=== PATIENT | female | born 1975 | race Caucasian/White ===

== ENCOUNTER 2020-08-15 11:22 | Observation (INO) | payer BC, OTHER ==
[2020-08-15] MEDS ORDERED: LOPERAMIDE HCL 2 MG CAPSULE PO PRN (12:00)
[2020-08-15] MEDS ORDERED: ONDANSETRON 4 MG/2 ML VIAL IV PRN (12:00)
[2020-08-15] MEDS ORDERED: POLYETHYL GLY 3350 17 GM/DOSE PO PRN (12:00)
[2020-08-15] MEDS ORDERED: ONDANSETRON 4 MG (ODT) TAB PO PRN (12:00)
[2020-08-15] MEDS ORDERED: DIPHENHYDRAMINE 25 MG TAB/CAP PO PRN (12:00)
[2020-08-15] MEDS: NACHLORIDE 0.45% 1,000 ML IV SCH (12:00)
[2020-08-15] MEDS ORDERED: ACETAMINOPHEN 325 MG TABLET PO PRN (12:00)
[2020-08-15] MEDS: HYDROMORPHONE HCL 1 MG/ML INJ IV PRN ×2 (13:19→20:13)
[2020-08-15 13:25] VITALS: BMI 27.2
--- NOTE | 2020-08-15 13:30 | RAD REPORT ---
EXAM DESCRIPTION: US - Abdomen Exam Complete - 08/15/2020 1:12 pm CLINICAL HISTORY: Abdominal pain. abd pain COMPARISON: No comparisons FINDINGS: The liver is normal in size, shape and echotexture. No focal liver lesions or intrahepatic biliary dilatation is seen. The gallbladder demonstrates no gallstones, pericholecystic fluid or gallbladder wall thickening. Co mmon bile duct is normal in caliber measuring 3 millimeters. Both kidneys are normal in size, shape and echotexture. No hydronephrosis, focal lesion of concern or perinephric fluid. The spleen is normal in size measuring 8 centimeters. The pancreas and aorta are obscured by bowel gas. The visualized aspects of the IVC are grossly normal. IMPRESSION: Unremarkable study except for limited assessment of the pancreas and aorta due to bowel gas.
--- NOTE | 2020-08-15 14:08 | RAD REPORT ---
EXAM DESCRIPTION: CT - Stone Protocol - 08/15/2020 2:00 pm CLINICAL HISTORY: Flank pain. adb pain COMPARISON: No comparisons TECHNIQUE: Axial images were obtained without oral or IV contrast. Lack of contrast limits solid org an and vascular assessment. The [id number] spans the entirety of the system partially obscuring uppermost abdomen and lung bases. Coronal reformatted images were obtained and reviewed. All CT scans are performed using dose optimization technique as appropriate and may include automated exposure control or mA/KV adjustment according to patient size. FINDINGS: The lower lung godoy are clear. Moderate axial hiatal hernia. Imaged portions of the liver and spleen show no suspicious findings on non-contrast imaging. The panc reas and adrenal glands are normal. No pathologic lymphadenopathy in the abdomen or pelvis. No urinary tract stones or obstructive uropathy. No bowel obstruction, free air, free fluid or abscess. Normal appendix noted.Sigmoid diverticulosis w ithout diverticulitis. No significant bony abnormality. IMPRESSION: No urinary tract stones or obstructive uropathy. Moderate axial hiatal hernia.
--- NOTE | 2020-08-15 14:17 | RAD REPORT ---
EXAM DESCRIPTION: RAD - Chest Pa And Lat (2 Views) - 08/15/2020 2:11 pm CLINICAL HISTORY: abd pain Chest pain. COMPARISON: No comparisons FINDINGS: The lungs are clear. The heart is normal in size. No displaced fractures. IMPRESSION: No acute or concerning finding suspected.
[2020-08-15 14:48] LABS: Absolute Lymphocytes (CBC) 2.4 K/uL (0.7-4.9); Basophils % 1.2 % (0-1.3); Hematocrit 34.8 % (36.0-45.0); Lymphocytes % 36.6 % (15.3-44.8); MPV 9.2 fL (7.6-11.3)
[2020-08-15 14:58] LABS: Protime INR 1.03
[2020-08-15] MEDS ORDERED: INFLUENZA VACCINE (for 3y+) 0.5 ML DOSE IMVAC ONE (15:00)
[2020-08-15 16:32] LABS: ALT/SGPT 17 U/L (12-78); AST/SGOT 13 U/L (15-37); Albumin 3.5 g/dL (3.4-5.0); Alkaline Phosphatase 83 U/L (45-117); Amylase 94 U/L (25-115); BUN Blood Urea Nitrogen 11 mg/dL (7-18); Bicarbonate 27 mmol/L (21-32); Bilirubin Direct < 0.1 mg/dL (0-0.2); Bilirubin Total 0.3 mg/dL (0.2-1.0); Glucose Level 88 mg/dL (74-106); Lipase 100 U/L (73-393); Magnesium 2.3 mg/dL (1.8-2.4); Phosphorus 3.6 mg/dL (2.5-4.9); Potassium 3.4 mmol/L (3.5-5.1); Protein, Total 7.6 g/dL (6.4-8.2); Sodium Level 139 mmol/L (136-145)
[2020-08-15] MEDS ORDERED: POTASSIUM CL SA 10 MEQ TAB PO ONE (18:00)
[2020-08-15] MEDS ORDERED: LORazepam 2 MG/ML VIAL IV ONE (19:00)
[2020-08-15] MEDS ORDERED: SODIUM CHLORIDE 0.9% 10ML INJ IV PRN (21:49)
[2020-08-15] MEDS: PANTOPRAZOLE 40 MG INJ IVP SCH (22:07)
[2020-08-15 22:10] VITALS: O2SAT 100
[2020-08-16] MEDS: NACHLORIDE 0.45% 1,000 ML IV SCH (01:03)
[2020-08-16 01:35] LABS: Urine Appearance CLOUDY; Urine Bilirubin NEGATIVE (NEG); Urine Blood NEGATIVE (NEG); Urine Color YELLOW; Urine Glucose NEGATIVE (NEG); Urine Protein NEGATIVE (NEG); Urine Specific Gravity 1.015 (1.005-1.030); Urine Urobilinogen 0.2 mg/dL (0.2-1.0)
[2020-08-16 01:50] LABS: Urine Microscopic Reflex ORDER UMIC
[2020-08-16 02:23] LABS: Urine Bacteria LOADED /HPF (<20); Urine Culture Reflex Order REFLEXED
[2020-08-16 02:24] LABS: Urine RBC <5 /HPF (NONE SEEN)
[2020-08-16 04:30] LABS: Absolute Lymphocytes (CBC) 1.3 K/uL (0.7-4.9); Basophils % 0.6 % (0-1.3); Hematocrit 32.8 % (36.0-45.0); RBC Red Blood Cell Count 4.16 M/uL (3.86-4.86)
[2020-08-16 04:36] LABS: Magnesium 2.2 mg/dL (1.8-2.4); Potassium 4.1 mmol/L (3.5-5.1)
[2020-08-16 08:03] VITALS: BP 110/65; TEMP 97.8
[2020-08-16] MEDS: PANTOPRAZOLE 40 MG INJ IVP SCH (08:07)
[2020-08-16] MEDS: HYDROMORPHONE HCL 1 MG/ML INJ IV PRN (08:11)
--- NOTE | 2020-08-16 08:37 | RAD REPORT ---
EXAM DESCRIPTION: NM - Hepatobiliary System W/ Ph - 08/16/2020 7:03 am CLINICAL HISTORY: ABDOMEN PAIN. COMPARISON: No comparisons TECHNIQUE: The patient was administered 6.3 mCi Tc99m Choletec. Imaging of the right upper quadrant was performed initially for up to 60 minutes. Gallbladder ejection fraction determination was then performed utilizing synthetic 1.4 Mgm CCK over a slow 30 minute infusion. FINDINGS: Normal hepatic uptake and excretion with appropriate clearance of background blood pool ac tivity. Normal visualization of biliary and small bowel activity. Gallbladder visualizes within normal time limits. The calculated ejection fraction is 88% (normal gre ater than 35%). 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 No delay in visualization of the gallb ladder, biliary tree, or duodenum. Ejection fraction is 88% (normal greater than 35%). Subjective patient pain assessment as detailed above.
[2020-08-16] MEDS ORDERED: ENOXAPARIN 40 MG/0.4 ML SQ SCH (09:00)
--- NOTE | 2020-08-16 13:04 | P.DS ---
Admission Date: 08/15/20 Discharge Date: 08/16/20 Disposition: ROUTINE DISCHARGE Discharge Condition: FAIR Hospital Course: VIRI HAS RECURRENT ABDOMEN PAIN, INTRACTABLE VOMITING THAT IS UNPREDICTABLE. SHE IS UNDER CARE OF DR ALANIZ FOR ANXIETY AND DPERESSION. 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 HER CT SCAN, SONOGRAM OF ABDOMEN, HIDA SCAN ARE ALL NORMAL. LAB IS NORMAL ALSO. SHE IS DOING BARIUM TEST TODAY. HER UA IS FALSE POSITIVE. ASYMPTOMATIC BACTERIURIA THAT DOES NOT NEED TREATMENT. I WILL GET HER ON LIBRAX THAT WORKS FOR IBS SYMPTOMS AND MAY HELP CYCLICAL VOMITING SYNDROME. Vital Signs/Physical Exam: Temp Pulse Resp BP Pulse Ox 97.8 F 67 16 110/65 100 08/16/20 08:00 08/16/20 08:00 08/16/20 08:41 08/16/20 08:00 08/16/20 08:41 Laboratory Data at Discharge: WBC 5.4 K/uL (4.3-10.9) D 08/16/20 04:02 Hgb 10.8 g/dL (12.0-15.0) L 08/16/20 04:02 Hct 32.8 % (36.0-45.0) L 08/16/20 04:02 Plt Count 247 K/uL (152-406) 08/16/20 04:02 PT 12.2 SECONDS (9.5-12.5) 08/15/20 14:28 INR 1.03 08/15/20 14:28 APTT 33.5 SECONDS (24.3-36.9) 08/15/20 14:28 Sodium 140 mmol/L (136-145) 08/16/20 04:02 Potassium 4.1 mmol/L (3.5-5.1) 08/16/20 04:02 BUN 9 mg/dL (7-18) 08/16/20 04:02 Creatinine 0.94 mg/dL (0.55-1.3) 08/16/20 04:02 Glucose 82 mg/dL (74-106) 08/16/20 04:02 Phosphorus 3.6 mg/dL (2.5-4.9) 08/15/20 14:28 Magnesium 2.2 mg/dL (1.8-2.4) 08/16/20 04:02 Total Bilirubin 0.3 mg/dL (0.2-1.0) 08/15/20 14:28 AST 13 U/L (15-37) L 08/15/20 14:28 ALT 17 U/L (12-78) 08/15/20 14:28 Alkaline Phosphatase 83 U/L (45-117) 08/15/20 14:28 Troponin I < 0.02 ng/mL (0.0-0.045) 08/15/20 14:28 Amylase 94 U/L (25-115) 08/15/20 14:28 Lipase 100 U/L (73-393) 08/15/20 14:28 Home Medications: Amitriptyline [Elavil*] 25 mg PO BEDTIME 08/15/20 Bupropion *Xl* [Wellbutrin XL*] 150 mg PO DAILY 08/15/20 Fluoxetine HCl [Prozac] 40 mg PO DAILY 08/15/20 Clidinium/Chlordiazepox [Librax] 1 cap PO DAILY #30 cap 08/16/20 New Medications: Clidinium/Chlordiazepox [Librax] 1 cap PO DAILY #30 cap
--- NOTE | 2020-08-16 13:50 | RAD REPORT ---
EXAM DESCRIPTION: RAD - Small Bowel Series - 08/16/2020 1:43 pm CLINICAL HISTORY: abdominal pain, vomiting COMPARISON: Stone Protocol dated 08/15/2020 FINDINGS: Apron Man film shows a nonspecific bowel gas pattern. No obstruction or free air. No suspiciou s calcifications. Gastric size and mucosal fold pattern are normal. No delay in transit of contrast into the small kendy l. Small bowel is normal in diameter with no mucosal fold thickening. No intrinsic or extrinsic mass identifiable. Terminal ileum has normal appearance. Transit time to the colon is 1 hour 30 minutes co mmon normal. IMPRESSION: Normal small bowel series.
[2020-08-16 15:22] LABS: Urine Appearance CLOUDY; Urine Bilirubin NEGATIVE (NEG); Urine Blood 1+ (NEG); Urine Color YELLOW; Urine Glucose NEGATIVE (NEG); Urine Protein NEGATIVE (NEG); Urine Specific Gravity 1.015 (1.005-1.030); Urine Urobilinogen 0.2 mg/dL (0.2-1.0)
[2020-08-16 15:24] LABS: Urine Microscopic Reflex ORDER UMIC
[2020-08-16 16:07] LABS: Urine Bacteria LOADED /HPF (<20); Urine Culture Reflex Order REFLEXED; Urine RBC <5 /HPF (NONE SEEN)
--- NOTE | 2020-08-17 07:18 | EKG ---
Test Date: 2020-08-15 Test Time: 13:29:07 Supervisor [employer]: THOMAS MEASUREMENT RESULTS: Intervals: Rate: 70 MO: 148 QRSD: 86 QT: 458 QTc: 494 [place]: P: 47 MO: 148 QRS: -46 T: 35 INTERPRETIVE STATEMENTS: Normal sinus rhythm Low voltage QRS Left anterior fascicular block Prolonged QT Abnormal ECG No previous ECG available for comparison Electronically Signed On 08-17-20 07:15:17 CDT by Lucas Romero
[2020-08-19 15:33] LABS: Vitamin D 1,25-Dihydroxy Total 52 pg/mL (18-72); Vitamin D,1,25-OH2, D2 <8 pg/mL
== END 2020-08-16 14:24 | disposition home or self-care (01) ==
LOC: 2ND 11:22
PROVIDERS: ADMIT Internal Medicine; ATTEND Internal Medicine
DX: R10.9 Unspecified abdominal pain (principal); R11.10 Vomiting, unspecified; Z20.828 Contact with and (suspected) exposure to other viral communicable diseases; F31.9 Bipolar disorder, unspecified; K44.9 Diaphragmatic hernia without obstruction or gangrene; G25.81 Restless legs syndrome; F41.8 Other specified anxiety disorders; R94.31 Abnormal electrocardiogram [ECG] [EKG]; I44.4 Left anterior fascicular block
CPT/HCPCS: 93005; 87040; 87088 ×2; 85025 ×2; 87086 ×2; 80048 ×2; 36415 ×2; 82150; 83735 ×2; 84100; 84132; 85610; 80076; 85730; 82652; 84443; 87077 ×2; 87186 ×2; 84484; 82607; 83690; 76377; 74176; 74250; 71046; 90471; 76700; 78227; U0002; Q2035; C9113 ×2; J1650; J1170 ×3; J2405; J2805; A9537; G0379; G0378 ×3; 81003; 81015

== ENCOUNTER 2021-02-06 18:39 | Observation (INO) | payer BC ==
[2021-02-06 20:29] LABS: Absolute Lymphocytes (CBC) 1.4 K/uL (0.7-4.9); Basophils % 0.6 % (0-1.3); Lymphocytes % 14.3 % (15.3-44.8); MPV 8.4 fL (7.6-11.3); RBC Red Blood Cell Count 4.08 M/uL (3.86-4.86)
[2021-02-06 20:33] LABS: Protime INR 1.09
[2021-02-06] MEDS ORDERED: ACETAMINOPHEN 325 MG TABLET PO PRN (20:36)
[2021-02-06] MEDS ORDERED: LOPERAMIDE HCL 2 MG CAPSULE PO PRN (20:36)
[2021-02-06] MEDS ORDERED: ONDANSETRON 4 MG/2 ML VIAL IV PRN (20:36)
[2021-02-06] MEDS ORDERED: ONDANSETRON 4 MG (ODT) TAB PO PRN (20:36)
[2021-02-06] MEDS ORDERED: DIPHENHYDRAMINE 25 MG TAB/CAP PO PRN (20:36)
[2021-02-06] MEDS ORDERED: POLYETHYL GLY 3350 17 GM/DOSE PO PRN (20:36)
[2021-02-06 20:56] LABS: Albumin 3.7 g/dL (3.4-5.0); Bilirubin Direct 0.1 mg/dL (0-0.2); Bilirubin Total 0.3 mg/dL (0.2-1.0); Magnesium 2.3 mg/dL (1.8-2.4); Phosphorus 1.8 mg/dL (2.5-4.9); Potassium 3.6 mmol/L (3.5-5.1); Protein, Total 7.9 g/dL (6.4-8.2); Thyroid Stimulating Hormone 0.611 uIU/mL (0.360-3.740)
[2021-02-06] MEDS ORDERED: NACHLORIDE 0.45% 1,000 ML IV SCH (21:00)
[2021-02-06] MEDS ORDERED: CEFOXITIN SODIUM 1 GM/VIAL IVPB SCH (21:00)
[2021-02-06] MEDS: HYDROMORPHONE HCL 1 MG/ML INJ IV PRN (21:14)
[2021-02-06] MEDS ORDERED: CEFEPIME/SWI 1gm 10 ML IVP SCH (21:15)
[2021-02-06] MEDS: CEFOXITIN/SWI 1gm 1 GM/10 ML SYR IV SCH (21:15)
[2021-02-06] MEDS ORDERED: WATER FOR INJ,STERILE 10 ML IV ONE (22:00)
[2021-02-06] MEDS ORDERED: CEFEPIME 1 GM/VIAL IVP SCH (22:00)
[2021-02-06 22:01] VITALS: BMI 26.5
[2021-02-06] MEDS ORDERED: CEFOXITIN SODIUM 1 GM/VIAL ONE (23:19)
[2021-02-07] MEDS: METRONIDAZOLE 500mg IVPB 500 MG/100 ML BAG IV SCH ×2 (00:03→09:34)
[2021-02-07 04:23] LABS: Absolute Lymphocytes (CBC) 2.5 K/uL (0.7-4.9); Basophils % 0.3 % (0-1.3); Hematocrit 31.9 % (36.0-45.0); Lymphocytes % 25.1 % (15.3-44.8); MPV 8.2 fL (7.6-11.3); RBC Red Blood Cell Count 3.93 M/uL (3.86-4.86)
[2021-02-07 04:33] LABS: Magnesium 2.4 mg/dL (1.8-2.4); Potassium 3.7 mmol/L (3.5-5.1)
--- NOTE | 2021-02-07 05:44 | RAD REPORT ---
EXAM DESCRIPTION: Paul Coronel (2 Views)02/06/2021 11:56 pm CLINICAL HISTORY: Abdominal pain COMPARISON: 2019 FINDINGS: The lungs appear clear of acute infiltrate. The heart is normal size IMPRESSION: No acute abnormalities displayed
[2021-02-07] MEDS ORDERED: clonazePAM 0.5 MG TAB PO SCH (07:00)
--- NOTE | 2021-02-07 08:09 | EKG ---
Test Date: 2021-02-06 Test Time: 20:42:36 [employer]: SHIRLEY MEASUREMENT RESULTS: Intervals: Rate: 78 AL: 152 QRSD: 84 QT: 408 QTc: 465 [place]: P: 52 AL: 152 QRS: -36 T: 23 INTERPRETIVE STATEMENTS: Normal sinus rhythm Left axis deviation Prolonged QT Abnormal ECG Compared to ECG 08/15/2020 13:29:07 Left-axis deviation now present Left anterior fascicular block no longer present Electronically Signed On 02-07-21 08:08:08 CDT by Lucas Romero
[2021-02-07] MEDS ORDERED: ENOXAPARIN 40 MG/0.4 ML SQ SCH (09:00)
[2021-02-07] MEDS ORDERED: POTASSIUM CL SA 10 MEQ TAB PO ONE (09:00)
[2021-02-07] MEDS ORDERED: FLUOXETINE 20 MG CAP PO SCH (09:00)
[2021-02-07] MEDS ORDERED: BUPROPION HCL XL 150 MG TAB PO SCH (09:00)
[2021-02-07] MEDS: HYDROMORPHONE HCL 1 MG/ML INJ IV PRN (09:33)
[2021-02-07] MEDS: CEFOXITIN/SWI 1gm 1 GM/10 ML SYR IV SCH (09:34)
--- NOTE | 2021-02-07 11:04 | RAD REPORT ---
EXAM DESCRIPTION: CT - Abdomen Pelvis W Contrast - 02/07/2021 6:30 am CLINICAL HISTORY: Abd pain TECHNIQUE: Contiguous axial images obtained through the abdomen and pelvis following the uneventful administration of IV contrast. Coronal and sagittal reformatted images were provided. This exam was performed according to our departmental dose-optimization program, which includes autom ated exposure control, adjustment of the mA and/or kV according to patient size and/or use of iterati ve reconstruction technique. COMPARISON: 08/15/2020 FINDINGS: Lung bases: Bibasilar subsegmental atelectasis/pleural parenchymal scar. Small to moderate hiatal hernia. The distal esophagus proximal to the hernia appears thickened. Liver: Unremarkable Gallbladder and biliary system: Unremarkable Pancreas: Unremarkable Spleen: Unremarkable Adrenals: Unremarkable Kidneys: Normal renal cortical enhancement. No calculi. No hydronephrosis. Bowel: Colonic diverticula without adjacent inflammatory change. No obstruction. No appreciable mucos al thickening. Appendix: Normal caliber appendix. No findings to suggest acute appendicitis. Urinary bladder: Unremarkable Reproductive: 2 cm right ovarian corpus luteal cyst. The uterus and left ovary are unremarkable as vi sualized. Lymph nodes: No pathologically enlarged lymph nodes. Peritoneum: No focal fluid collection. No free air. Vessels: No abdominal aortic aneurysm. Abdominal wall: Unremarkable Bones: Multilevel spondylosis. No acute fracture. IMPRESSION: 1. Small to moderate hiatal hernia. The distal esophagus proximal to the hernia appear s thickened and may represent esophagitis. 2. 2 cm right ovarian corpus luteal cyst. No follow-up imaging is recommended. Reference: J Am Tulio Radiol 2013;10:675-681 3. Other findings as above. Electronically signed by: Jimmy Ramirez MD 02/07/2021 12:01 AM CDT Due to temporary technical issues with the PACS/Fluency reporting system, reports are being signed by the in house radiologist without review as a courtesy to ensure prompt reporting. The interpreting r adiologist is fully responsible for the content of the report.
[2021-02-07 13:42] LABS: Urine Appearance CLEAR (Clear); Urine Bilirubin NEGATIVE (Negataive); Urine Blood NEGATIVE (Negative); Urine Color YELLOW (Yellow); Urine Glucose NEGATIVE (Negative); Urine Protein NEGATIVE (Negative); Urine Specific Gravity 1.025 (1.005-1.030); Urine Urobilinogen 0.2 mg/dL (0.2-1.0)
[2021-02-07 13:46] LABS: Urine Microscopic Reflex ORDER UMIC
[2021-02-07 13:48] LABS: Specific Gravity 1.025 (1.005-1.030)
[2021-02-07 14:26] LABS: Urine Bacteria <20 /HPF (<20); Urine RBC <5 /HPF (NONE SEEN)
[2021-02-07 17:15] VITALS: BP 104/59; TEMP 98.5
--- NOTE | 2021-02-07 21:32 | P.DS ---
Admission Date: 02/06/21 Discharge Date: 02/07/21 Disposition: ROUTINE DISCHARGE Discharge Condition: FAIR Brief History of Present Illness: VIRI HAS HAD CHRONIC GI ISSUES FOR YEARS. SHE IS A VERY ANXIOIUS PERSON. MOST LIKELY SHE HAS IBS BUT SHE IS NOT TAKING KLONOIN DAILY SHE IS SUPPOSED TO . SHE HAS R OVARIAN CYST IN LUTEAL PHASE. SHE WILL FU WITH GI AND GRAVITY MANAGER DOCTORS. HER SYMPTOMS ARE ALREADY BETTER WITHOUT MUCH TREATMENT. SHE IS STABLE FOR DISCHARGE. HER CT SCAN SHOWS NOTHING ACUTE. FU IN OFFICE IN TWO WEEKS. Vital Signs/Physical Exam: Temp Pulse Resp BP Pulse Ox 98.5 F 72 15 104/59 L 96 02/07/21 12:00 02/07/21 12:00 02/07/21 12:00 02/07/21 12:00 02/07/21 12:00 Laboratory Data at Discharge: WBC 10.00 K/uL (4.3-10.9) 02/07/21 03:41 Hgb 10.6 g/dL (12.0-15.0) L 02/07/21 03:41 Hct 31.9 % (36.0-45.0) L 02/07/21 03:41 Plt Count 312 K/uL (152-406) 02/07/21 03:41 PT 12.6 SECONDS (9.5-12.5) H 02/06/21 20:03 INR 1.09 02/06/21 20:03 APTT 28.9 SECONDS (24.3-36.9) 02/06/21 20:03 Sodium 140 mmol/L (136-145) 02/07/21 03:41 Potassium 3.7 mmol/L (3.5-5.1) 02/07/21 03:41 BUN 15 mg/dL (7-18) 02/07/21 03:41 Creatinine 0.81 mg/dL (0.55-1.3) 02/07/21 03:41 Glucose 83 mg/dL (74-106) 02/07/21 03:41 Phosphorus 1.8 mg/dL (2.5-4.9) L 02/06/21 20:03 Magnesium 2.4 mg/dL (1.8-2.4) 02/07/21 03:41 Total Bilirubin 0.3 mg/dL (0.2-1.0) 02/06/21 20:03 AST 15 U/L (15-37) 02/06/21 20:03 ALT 21 U/L (12-78) 02/06/21 20:03 Alkaline Phosphatase 71 U/L (45-117) 02/06/21 20:03 Home Medications: Fluoxetine HCl [Prozac] 40 mg PO DAILY 08/15/20 Bupropion HCl [Wellbutrin Xl] 300 mg PO DAILY 02/06/21 clonazePAM [Klonopin] 0.5 mg PO PRN 02/06/21 Followup: Paxton Zhu MD [ACTIVE - CAN ADMIT] -
== END 2021-02-07 13:50 | disposition home or self-care (01) ==
LOC: 2ND 19:32
PROVIDERS: ADMIT Internal Medicine; ATTEND Internal Medicine
DX: R10.9 Unspecified abdominal pain (principal); N83.11 Corpus luteum cyst of right ovary; F41.9 Anxiety disorder, unspecified
CPT/HCPCS: 93005; 87088; 85025 ×2; 87086; 80048 ×2; 36415 ×2; 83735 ×2; 81025; 84100; 85610; 80076; 85730; 84443; 82607; 82306; 74177; 71046; U0003; Q9967; J1650; J1170 ×2; J0694; J2405; 81003; 81015; G0378

== ENCOUNTER 2021-07-02 22:10 | Emergency (ER) | payer BC ==
--- NOTE | 2021-07-03 00:04 | ER ---
Nurse's Notes [facility] Name: Bhavna Ambrose Age: 45 yrs Sex: Female : 1975 Arrival Date: 07/02/2021 Time: 23:16 Bed Waiting Private MD: Diagnosis: ED Course: 07/02 23:16 Patient arrived in ED. cf2 07/03 00:03 Patient's name was called from ER lobby. No response. Unable to locate patient. Will bb disposition as left without being seen by a provider. Administered Medications: No medications were administered Outcome: 00:03 Patient left the ED. bb Signatures: Shala Zapien RN RN bb Orion Hsieh cf2
== END 2021-07-03 00:03 | disposition left against medical advice (07) ==
LOC: ER 22:10
DX: Z02.9 Encounter for administrative examinations, unspecified (principal)

== ENCOUNTER 2021-09-27 07:13 | Day surgery (SDC) | payer BC ==
[2021-09-27 07:37] VITALS: TEMP 98.2; O2SAT 100; BMI 30.2
[2021-09-27] MEDS ORDERED: SODIUM CHLORIDE 0.9% 10ML INJ IV ONE (08:00)
[2021-09-27] MEDS ORDERED: COSYNTROPIN 0.25 MG VIAL IV ONE (08:00)
[2021-09-27 09:58] VITALS: BP 102/63
== END 2021-09-27 09:44 | disposition home or self-care (01) ==
LOC: DS 07:13
PROVIDERS: ATTEND Internal Medicine
DX: E87.1 Hypo-osmolality and hyponatremia (principal); R11.10 Vomiting, unspecified
CPT/HCPCS: 36415; 82533 ×4; 82024; J0834

== ENCOUNTER 2022-04-08 12:58 | Emergency (ER) | payer BC ==
[2022-04-08 13:32] LABS: Urine Blood Trace-intact (Negative); Urine Glucose Negative (Negative); Urine Protein Negative (Negative); Urine pH 6.5 (5.0-7.0)
[2022-04-08 13:35] LABS: Absolute Lymphocytes (CBC) 1.2 K/uL (0.7-4.9); Hematocrit 27.9 % (36.0-45.0); Lymphocytes % 12.8 % (15.3-44.8); MPV 8.1 fL (7.6-11.3); RBC Red Blood Cell Count 3.66 M/uL (3.86-4.86)
[2022-04-08] MEDS ORDERED: METOCLOPRAMIDE 10 MG/2mL INJ ONE (13:39)
[2022-04-08] MEDS ORDERED: DIPHENHYDRAMINE 50 MG/ML VIAL ONE (13:40)
[2022-04-08] MEDS ORDERED: NA CHLORIDE 0.9% 1,000 ML ONE ×2 (13:40→16:31)
[2022-04-08] MEDS ORDERED: LORazepam 2 MG/ML VIAL ONE (13:40)
[2022-04-08 13:56] LABS: Albumin 3.3 g/dL (3.4-5.0); Bilirubin Total 0.2 mg/dL (0.2-1.0); Potassium 3.5 mmol/L (3.5-5.1); Protein, Total 7.3 g/dL (6.4-8.2)
[2022-04-08 15:08] LABS: Platelet Estimate ADEQ; White Blood Cell Scan OK (OK)
[2022-04-08 15:09] LABS: Anisocytosis 1+; Blood Morphology Comment NOTED (NOT SEEN); Polychromasia SLIGHT
--- NOTE | 2022-04-08 15:35 | RAD REPORT ---
EXAM DESCRIPTION: CTAbdomen Pelvis W Contrast - 04/08/2022 3:28 pm CLINICAL HISTORY: Abdominal pain. Abdominal pain, acute, nonlocalized COMPARISON: Abdomen Pelvis W Contrast dated 02/06/2021; Chest Pa And Lat (2 Views) dated 02/06/2021 TECHNIQUE: Biphasic CT imaging of the abdomen and pelvis was performed with 100 ml non-ionic IV cont rast. All CT scans are performed using dose optimization technique as appropriate and may include automated exposure control or mA/KV adjustment according to patient size. FINDINGS: The lung bases are clear.Moderate hiatal hernia with edema, thickening and several adjacen t lymph nodes. The liver, spleen, pancreas, adrenal glands and kidneys are within normal limits. No bowel obstruction, free air, free fluid or abscess. Moderate stool in the rectosigmoid colon is pr esent with scattered diverticula. The appendix is normal. No evidence of significant lymphadenopathy . No suspicious bony findings. IMPRESSION: No acute intra-abdominal or pelvic finding. Edema, thickening and small adjacent lymph nodes at the level of the hiatal hernia/gastroesophageal j unction. Follow-up upper endoscopy would be recommended if not recently performed to directly visuali ze this region.
[2022-04-08] MEDS ORDERED: PANTOPRAZOLE 40 MG INJ ONE (16:31)
[2022-04-08] MEDS ORDERED: MORPHINE 4 MG/ML SYR ONE (16:31)
[2022-04-08] MEDS ORDERED: ONDANSETRON 4 MG/2 ML VIAL ONE (16:31)
--- NOTE | 2022-04-08 19:26 | EDPHYS ---
Physician Documentation [facility] Name: Bhavna Ambrose Age: 46 yrs Sex: Female : 1975 Arrival Date: 04/08/2022 Time: 13:01 Bed 15 Private MD: ED Physician Sánchez Montes HPI: 04/08 13:08 This 46 yrs old Female presents to ER via Ambulatory with complaints of Abdominal Pain, jmm Nausea. 13:08 The patient presents with abdominal pain. Onset: The symptoms/episode began/occurred jmm gradually. The symptoms do not radiate. Associated signs and symptoms: Pertinent positives: nausea and vomiting. The symptoms are described as achy. This is a 46 year old female with a history of gastroparesis, depression that presents to the ED with complaints of abdominal pain, vomiting which she attributes to a flare of gastroparesis. Patient was recently hospitalized due to anemia last week. . [employer]: 13:06 LMP 04/04/2022 ss Historical: - Allergies: 13:06 Sulfa (Sulfonamide Antibiotics); ss 13:06 Bactrim; ss - PMHx: 13:06 Gastroparesis; Depressive disorder; Anxiety; ss - PSHx: 13:06 Hiatal hernia repair x 2; EOP repair; ss - Immunization history:: Client reports having NOT received the Covid vaccine. - Social history:: Smoking status: Patient denies any tobacco usage or history of. ROS: 13:08 Constitutional: Negative for fever, chills, and weight loss, Cardiovascular: Negative jmm for chest pain, palpitations, and edema, Respiratory: Negative for shortness of breath, cough, wheezing, and pleuritic chest pain. 13:08 Abdomen/GI: Positive for abdominal pain. 13:08 All other systems are negative. Exam: 13:08 Constitutional: This is a well developed, well nourished patient who is awake, alert, jmm and in no acute distress. Head/Face: atraumatic. Eyes: EOMI, no conjunctival erythema appreciated ENT: Moist Mucus Membranes Neck: Trachea midline, Supple Chest/axilla: Normal chest wall appearance and motion. Cardiovascular: Regular rate and rhythm. No edema appreciated Respiratory: Normal respirations, no respiratory distress appreciated 13:08 Back: Normal ROM Skin: General appearance color normal MS/ Extremity: Moves all extremities, no obvious deformities appreciated, no edema noted to the lower extremities Neuro: Awake and alert Psych: Behavior is normal, Mood is normal, Patient is cooperative and pleasant 13:08 Abdomen/GI: Inspection: abdomen appears normal, Bowel sounds: normal, Palpation: soft, mild abdominal tenderness, in all quadrants. Vital Signs: 13:04 BP 111 / 93; Pulse 87; Resp 15; Temp 97.0(TE); Pulse Ox 100% on R/A; Weight 72.57 kg; ss Height 5 ft. 2 in. (157.48 cm); Pain 8/10; 14:40 BP 116 / 71; Pulse 72; Resp 18; Pulse Ox 100% ; Pain 7/10; jh6 15:00 BP 116 / 71; Pulse 66; Resp 18; Pulse Ox 100% ; jh6 16:30 BP 151 / 90; Pulse 89; Resp 17; Pulse Ox 100% ; Pain 5/10; jh6 18:50 BP 93 / 77; Pulse 87; Resp 17; Temp 97.6(O); Pulse Ox 100% ; Pain 3/10; jh6 19:45 BP 127 / 72; Pulse 85; Resp 18; Pulse Ox 99% on R/A; ll3 13:04 Body Mass Index 29.26 (72.57 kg, 157.48 cm) ss MDM: 13:08 Patient medically screened. [facility] 19:25 Data reviewed: vital signs, nurses notes. Counseling: I had a detailed discussion with al the patient and/or guardian regarding: the historical points, exam findings, and any diagnostic results supporting the discharge/admit diagnosis, lab results, the need to transfer to another facility. 04/08 13:17 Order name: CBC with Diff; Complete Time: 15:10 [facility] 04/08 13:17 Order name: CMP; Complete Time: 13:58 [facility] 04/08 13:17 Order name: Lipase; Complete Time: 13:58 [facility] 04/08 13:32 Order name: Urine Dipstick-Ancillary; Complete Time: 13:41 [facility] 04/08 13:32 Order name: Urine --Ancillary (enter results); Complete Time: 13:48 04/08 13:33 Order name: Urine Dipstick-Ancillary [facility] 04/08 13:39 Order name: CBC Smear Scan; Complete Time: 15:10 [facility] 04/08 14:57 Order name: CT Abd/Pelvis - IV Contrast Only; Complete Time: 15:39 [facility] 04/08 13:17 Order name: IV Saline Lock; Complete Time: 13:40 [facility] 04/08 13:17 Order name: Labs collected and sent; Complete Time: 13:41 [facility] 04/08 13:17 Order name: Urine Dipstick-Ancillary (obtain specimen); Complete Time: 13:41 [facility] 04/08 13:17 Order name: Urine Test (obtain specimen); Complete Time: 13:41 [facility] Administered Medications: 13:40 Drug: NS 0.9% 1000 ml Route: IV; Rate: 1 bolus; Site: right antecubital; jh6 14:50 Follow up: IV Status: Completed infusion 6 13:40 Drug: Reglan (metoCLOPramide) 20 mg Route: IVP; Site: right antecubital; jh6 14:35 Follow up: Response: No change in condition 6 13:40 Drug: diphenhydrAMINE 25 mg Route: IVP; Site: right antecubital; jh6 14:30 Follow up: Response: No adverse reaction 6 13:40 Drug: Ativan (LORazepam) 1 mg Route: IVP; Site: right antecubital; jh6 14:30 Follow up: Response: Marked relief of symptoms jh6 16:25 Drug: Zofran (Ondansetron) 4 mg Route: IVP; Site: right antecubital; jh6 18:45 Follow up: Response: Marked relief of symptoms 6 16:25 Drug: ProTONIX (pantoprazole) 40 mg Route: IVP; Site: right antecubital; jh6 18:45 Follow up: Response: No adverse reaction jh6 16:25 Drug: morphine 4 mg Route: IVP; Infused Over: 4 mins; Site: right antecubital; jh6 18:44 Follow up: Response: Marked relief of symptoms 6 17:20 Drug: NS 0.9% 1000 ml Route: IV; Rate: 1 bolus; Site: right antecubital; jh6 18:44 Follow up: IV Status: Completed infusion jh6 19:31 Drug: morphine 4 mg Route: IVP; Infused Over: 4 mins; Site: right antecubital; 3 19:46 Follow up: Response: No adverse reaction ll3 Disposition Summary: 04/08/22 19:26 Discharge Ordered Location: Home [facility] Condition: Stable [facility] Diagnosis - Vomiting [facility] - Gastroparesis [facility] Followup: [facility] - With: Private Physician - When: 1 - 2 days - Reason: Recheck today's complaints, Continuance of care, Re-evaluation by your physician Discharge Instructions: - Discharge Summary Sheet [facility] - Vomiting, Adult [facility] - Gastroparesis [facility] Forms: - Medication Reconciliation Form [facility] - Thank You Letter [facility] - Antibiotic Education [facility] - Prescription Opioid Use [facility] Prescriptions: - Pepcid 20 mg Oral Tablet - take 1 tablet by ORAL route every 12 hours for 10 days; 20 tablet; Refills: 0, [facility] Product Selection Permitted - Reglan 10 mg Oral Tablet - take 1 tablet by ORAL route every 6 hours take 30 minutes before meals and at [facility] bedtime; 20 tablet; Refills: 0, Product Selection Permitted - promethazine 25 mg Oral Tablet - take 1 tablet by ORAL route every 6 hours As needed; 20 tablet; Refills: 0, [facility] Product Selection Permitted Signatures: Dispatcher [employer] Sánchez Guerra MD MD cha Mickail, Joel, PA PA [facility] Abbey Hilton RN RN ss Arik Arcos RN RN ll3 Argelia Baker RN RN jh6
--- NOTE | 2022-04-08 19:26 | ER ---
Nurse's Notes [facility] Name: Bhavna Ambrose Age: 46 yrs Sex: Female : 1975 Arrival Date: 04/08/2022 Time: 13:01 Bed 15 Private MD: Diagnosis: Vomiting;Gastroparesis Presentation: 04/08 13:04 Chief complaint: Patient states: abd pain, N/V that began this morning. Pt reports that ss she was seen 5 days ago at [facility] and transferred to [facility] where they discharged her Saturday evening. Pt states, "I don't think they found another, but I do have a hx of gastroparesis.". Coronavirus screen: Client denies travel out of the [place] in the last 14 days. Ebola Screen: Patient denies exposure to infectious person. Patient denies travel to an Ebola-affected area in the 21 days before illness onset. Initial Sepsis Screen: Does the patient meet any 2 criteria? No. Patient's initial sepsis screen is negative. Does the patient have a suspected source of infection? No. Patient's initial sepsis screen is negative. Risk Assessment: Do you want to hurt yourself or someone else? Patient reports no desire to harm self or others. Onset of symptoms is unknown. 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 - Social history:: Smoking status: Patient denies any tobacco usage or history of. Screenin:30 Abuse screen: Denies threats or abuse. Denies injuries from another. [facility] 13:30 Nutritional screening: No deficits noted. 6 14:30 Tuberculosis screening: No symptoms or risk factors identified. Fall Risk IV access (20 jh6 points). Assessment: 13:30 General: Appears uncomfortable, Behavior is calm, cooperative. 6 13:30 Pain: Complains of pain in epigastric area, right upper quadrant and left upper jh6 quadrant Pain currently is 7 out of 10 on a pain scale. Quality of pain is described as aching, crampy, Pain began suddenly, 4 hours ago. Is continuous, Alleviated by rest, Aggravated by eating, drinking, increased activity. GI: Abdomen is flat, Bowel sounds present X 4 quads. Abd is soft X 4 quads Abdomen is tender to palpation in epigastric area, right upper quadrant and left upper quadrant Reports upper abdominal pain, nausea, vomiting. 15:19 Reassessment: Patient and/or family updated on plan of care and expected duration. Pain jh6 level reassessed. Patient is alert, oriented x 3, equal unlabored respirations, skin warm/dry/pink. pt vomited once with small quarter SIZED BRIGHT RED CLOT NOTED Patient states feeling better. 16:20 Reassessment: Patient and/or family updated on plan of care and expected duration. Pain jh6 level reassessed. Patient is alert, oriented x 3, equal unlabored respirations, skin warm/dry/pink. reporting nausea and pain to upper abd present but not as bad as when she came in rates pain 4-5. 18:00 Reassessment: Patient and/or family updated on plan of care and expected duration. Pain jh6 level reassessed. Patient is alert, oriented x 3, equal unlabored respirations, skin warm/dry/pink. Patient denies pain at this time. Patient states feeling better. Patient states symptoms have improved. 19:00 Reassessment: Patient and/or family updated on plan of care and expected duration. Pain ll3 level reassessed. Patient is alert, oriented x 3, equal unlabored respirations, skin warm/dry/pink. Patient states feeling better. Patient states symptoms have improved. Vital Signs: 13:04 BP 111 / 93; Pulse 87; Resp 15; Temp 97.0(TE); Pulse Ox 100% on R/A; Weight 72.57 kg; ss Height 5 ft. 2 in. (157.48 cm); Pain 8/10; 14:40 BP 116 / 71; Pulse 72; Resp 18; Pulse Ox 100% ; Pain 7/10; jh6 15:00 BP 116 / 71; Pulse 66; Resp 18; Pulse Ox 100% ; jh6 16:30 BP 151 / 90; Pulse 89; Resp 17; Pulse Ox 100% ; Pain 5/10; jh6 18:50 BP 93 / 77; Pulse 87; Resp 17; Temp 97.6(O); Pulse Ox 100% ; Pain 3/10; jh6 19:45 BP 127 / 72; Pulse 85; Resp 18; Pulse Ox 99% on R/A; ll3 13:04 Body Mass Index 29.26 (72.57 kg, 157.48 cm) ED Course: 13:01 Patient arrived in ED. rg4 13:06 Triage completed. ss 13:06 Arm band placed on right wrist. ss 13:08 Argelia Baker, RN is Primary Nurse. jh6 13:08 John Patel PA is PHCP. [facility] 13:08 Sánchez Montes MD is Attending Physician. [facility] 13:30 Inserted saline lock: 22 gauge in right antecubital area, using aseptic technique. jh6 Blood collected. 15:[address] jh6 15:30 CT Abd/Pelvis - IV Contrast Only In Process Unspecified. EDMS 19:00 Patient has correct armband on for positive identification. Bed in low position. Call ll3 light in reach. Side rails up X 1. Side rails up X2. 19:45 No provider procedures requiring assistance completed. IV discontinued, intact, ll3 bleeding controlled, No redness/swelling at site. Pressure dressing applied. Administered Medications: 13:40 Drug: NS 0.9% 1000 ml Route: IV; Rate: 1 bolus; Site: right antecubital; 6 14:50 Follow up: IV Status: Completed infusion 6 13:40 Drug: Reglan (metoCLOPramide) 20 mg Route: IVP; Site: right antecubital; 6 14:35 Follow up: Response: No change in condition jh6 13:40 Drug: diphenhydrAMINE 25 mg Route: IVP; Site: right antecubital; jh6 14:30 Follow up: Response: No adverse reaction 6 13:40 Drug: Ativan (LORazepam) 1 mg Route: IVP; Site: right antecubital; 6 14:30 Follow up: Response: Marked relief of symptoms 6 16:25 Drug: Zofran (Ondansetron) 4 mg Route: IVP; Site: right antecubital; 6 18:45 Follow up: Response: Marked relief of symptoms 6 16:25 Drug: ProTONIX (pantoprazole) 40 mg Route: IVP; Site: right antecubital; 6 18:45 Follow up: Response: No adverse reaction 6 16:25 Drug: morphine 4 mg Route: IVP; Infused Over: 4 mins; Site: right antecubital; 6 18:44 Follow up: Response: Marked relief of symptoms 6 17:20 Drug: NS 0.9% 1000 ml Route: IV; Rate: 1 bolus; Site: right antecubital; 6 18:44 Follow up: IV Status: Completed infusion 6 19:31 Drug: morphine 4 mg Route: IVP; Infused Over: 4 mins; Site: right antecubital; 3 19:46 Follow up: Response: No adverse reaction 3 Medication: 19:46 VIS not applicable for this client. 3 Outcome: 19:26 Discharge ordered by MD. [facility] 19:45 Discharged to home ambulatory, with significant other. 3 19:45 Condition: stable 19:45 Discharge instructions given to patient, significant other, Instructed on discharge instructions, follow up and referral plans. medication usage, Demonstrated understanding of instructions, follow-up care, medications, Prescriptions given X 3. 19:46 Patient left the ED. 3 Signatures: Dispatcher [employer] EDMS John Patel PA PA jmm Smirch, Shelby, RN RN ss Garcia, Rubi rg4 Arik Arcos RN RN 3 Argelia Baker RN RN 6 Corrections: (The following items were deleted from the chart) 15:16 14:30 Abuse screen: Denies threats or abuse. Denies injuries from another. [place] [id number] 15:17 14:30 Inserted saline lock: 22 gauge in right antecubital area, using aseptic [facility] technique. Blood collected. [facility] 15:17 14:30 Nutritional screening: No deficits noted. [place] [id number]
[2022-04-08] MEDS ORDERED: MORPHINE 2 MG/ML SYR ONE (19:31)
[2022-04-08 20:02] VITALS: TEMP 97.6
[2022-04-08 20:04] VITALS: BP 127/72; O2SAT 99
== END 2022-04-08 19:46 | disposition home or self-care (01) ==
LOC: ER 12:58
DX: K31.84 Gastroparesis (principal); R10.9 Unspecified abdominal pain; Z88.1 Allergy status to other antibiotic agents; Z88.2 Allergy status to sulfonamides
CPT/HCPCS: 96361; 85025; 36415; 81025; 81003; 83690; 80053; 74177; 96375; 96374; 99284; Q9967; J2765; J1200; C9113; J2270; J7030 ×2; J2405

== ENCOUNTER 2024-09-08 04:44 | Emergency (ER) | payer BC ==
[2024-09-08] MEDS ORDERED: ONDANSETRON 4 MG/2 ML VIAL ONE (06:28)
[2024-09-08] MEDS ORDERED: KETOROLAC 30 MG/ML INJ ONE (06:28)
[2024-09-08] MEDS ORDERED: MORPHINE 4 MG/ML SYR ONE (06:29)
[2024-09-08] MEDS ORDERED: METOCLOPRAMIDE 10 MG/2mL INJ ONE (06:29)
[2024-09-08] MEDS ORDERED: FAMOTIDINE 20 MG/2 ML VIAL IV ONE (06:29)
[2024-09-08] MEDS ORDERED: NA CHLORIDE 0.9% 1,000 ML ONE (06:29)
[2024-09-08 07:04] LABS: Absolute Eosinophils 0.1 K/uL (0-0.5); Absolute Lymphocytes (CBC) 1.1 K/uL (0.7-4.9); Absolute Monocytes 0.4 K/uL (0.1-1.3); Absolute Neutrophil 6.1 K/uL (1.8-8.0); Basophils % 0.2 % (0-1.3); Eosinophils % 1.2 % (0-4.4); Hematocrit 37.7 % (36.0-45.0); Hemoglobin 12.3 g/dL (12.0-15.0); Lymphocytes % 14.3 % (15.3-44.8); MCH 26.9 pg (27.0-35.0); MCHC 32.6 g/dL (32.0-36.0); MCV 82.7 fL (80-100); MPV 8.4 fL (7.6-11.3); Monocytes % 5.8 % (3.3-12.3); Neutrophils % 78.5 % (41.7-73.7); Nucleated Red Blood Cells % 0.2 % (0-0); Platelets 320 thou/uL (152-406); RBC Red Blood Cell Count 4.56 M/uL (3.86-4.86); Red Cell Distribution Width 15.2 % (12.1-15.2)
[2024-09-08 07:22] LABS: Albumin 3.6 g/dL (3.4-5.0); Albumin/Globulin Ratio 0.8 (1.1-1.8); Anion Gap 7.5 mEq/L (5.0-15.0); Bilirubin Total 0.3 mg/dL (0.2-1.0); C-Reactive Protein 5.22 mg/L (<3.00); Globulin 4.3 g/dL (2.3-3.5); Potassium 3.5 mEq/L (3.5-5.1); Protein, Total 7.9 g/dL (6.4-8.2)
--- NOTE | 2024-09-08 08:03 | RAD REPORT ---
EXAMINATION: CT ABDOMEN AND PELVIS WITH CONTRAST CLINICAL INDICATION: Abdominal pain TECHNIQUE: CT abdomen and pelvis was performed, after the administration of 100 cc Isovue-300.. Sagit merissa and coronal reconstructions were obtained. One or more of the following dose reduction techniques were used: Automated exposure control, adjustment of the mA and kV according to patient si ze, and iterative reconstruction. Unless otherwise specified, incidental findings do not require dedicated imaging follow-up. [id number]. Oral contrast was not given which limits evaluation of bowel and appendix. COMPARISON: 2021 FINDINGS: Liver, spleen, pancreas, adrenals and kidneys appear unremarkable 1 cm fatty structure lies adjacent to the proximal sigmoid colon. Diverticula stem from colon without evidence of diverticulitis. 2 cm left ovarian cyst without significant free fluid. No follow-up imaging recommended. Normal appendix. Moderate hiatal hernia. : IMPRESSION: 1 cm fatty structure adjacent to the proximal sigmoid colon may indicate epiploic appendagitis. The i nflammation is minimal.
[2024-09-08 08:46] LABS: Urine Bilirubin NEGATIVE (Negative); Urine Blood Negative (Negative); Urine Clarity Clear (Clear); Urine Color Light-Yellow (Yellow); Urine Glucose NEGATIVE (Negative); Urine Ketones NEGATIVE (Negative); Urine Microscopic Reflex YN NO UMIC; Urine Nitrite NEGATIVE (Negative); Urine Protein NEGATIVE (Negative); Urine Urobilinogen Normal (Normal); Urine pH 6.5 (5.0-7.0)
[2024-09-08 08:47] LABS: Specific Gravity > 1.030 (1.005-1.030)
--- NOTE | 2024-09-08 09:21 | EDPHYS ---
Physician Documentation [facility] Name: Bhavna Ambrose Age: 49 yrs Sex: Female : 1975 Arrival Date: 09/08/2024 Time: 04:44 Bed 15 Private MD: Paxton Zhu V ED Physician Luis Ca HPI: 09/08 06:12 This 49 yrs old Female presents to ER via Ambulatory with complaints of sp4 Abdominal Pain, Nausea/Vomiting. 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 - Infectious Disease History:: Denies. - Social history:: Smoking status: Patient denies any tobacco usage or history of. ROS: 10:14 Constitutional: Negative for fever, chills, and weight loss, Cardiovascular: Negative rt for chest pain, palpitations, and edema, Respiratory: Negative for shortness of breath, cough, wheezing, and pleuritic chest pain, MS/Extremity: Negative for injury and deformity, Skin: Negative for injury, rash, and discoloration, Neuro: Negative for headache, weakness, numbness, tingling, and seizure, 10:14 Abdomen/GI: Positive for abdominal pain, nausea, Exam: 10:14 Constitutional: This is a well developed, well nourished patient who is awake, alert, rt and in no acute distress. Head/Face: Normocephalic, atraumatic. Chest/axilla: Normal chest wall appearance and motion. Nontender with no deformity. No lesions are appreciated. Cardiovascular: Regular rate and rhythm with a normal S1 and S2. No gallops, murmurs, or rubs. Normal PMI, no JVD. No pulse deficits. Respiratory: Lungs have equal breath sounds bilaterally, clear to auscultation and percussion. No rales, rhonchi or wheezes noted. No increased work of breathing, no retractions or nasal flaring. Skin: Warm, dry with normal turgor. Normal color with no rashes, no lesions, and no evidence of cellulitis. MS/ Extremity: Pulses equal, no cyanosis. Neurovascular intact. Full, normal range of motion. 10:14 Abdomen/GI: Mild tenderness to the lower quadrants, no rebound, guarding, distention, Vital Signs: 05:17 BP 132 / 100; Pulse 80; Resp 18; Temp 98.3; Pulse Ox 99% ; cp4 06:30 BP 112 / 75; Pulse 80; Resp 18; Temp 98; Pulse Ox 97% on R/A; Pain 8/10; rg5 09:29 BP 98 / 64; Pulse 64; Resp 16; Temp 98; Pulse Ox 99% ; bp 06:30 Pain Scale: Adult rg5 MDM: 06:01 Medical Screening Exam initiated sp4 10:14 Differential diagnosis: Epiploic appendagitis, gastritis, gastroparesis. Data reviewed: rt vital signs, nurses notes. Consideration of Admission/Observation Patient was admitted/placed on observation. Independent interpretation of the following test(s) in the Emergency Department CT Scan: My interpretation is No bowel obstruction syndrome interpretation of CT scan images. Care significantly affected by the following chronic conditions: Gastroparesis. Counseling: I had a detailed discussion with the patient and/or guardian regarding the historical points, exam findings, and any diagnostic results supporting the discharge/admit diagnosis, lab results, radiology results, the need for outpatient follow up, to return to the emergency department if symptoms worsen or persist or if there are any questions or concerns that arise at home. Response to treatment: the patient's symptoms have markedly improved after treatment. 09/08 07:08 Order name: CBC with Automated Diff; Complete Time: 08:22 EDMS 09/08 07:22 Order name: Comprehensive Metabolic Panel; Complete Time: 07:26 EDMS 09/08 07:22 Order name: C-Reactive Protein; Complete Time: 08:22 EDMS 09/08 07:22 Order name: Lipase; Complete Time: 08:22 EDMS 09/08 08:43 Order name: Urinalysis w/ reflexes; Complete Time: 09:12 EDMS 09/08 08:45 Order name: CBC with Automated Diff EDMS 09/08 08:45 Order name: Comprehensive Metabolic Panel EDMS 09/08 08:45 Order name: C-Reactive Protein EDMS 09/08 08:45 Order name: Lipase EDMS 09/08 08:03 Order name: CT; Complete Time: 08:22 EDMS 09/08 08:40 Order name: Abdomen EDMS 09/08 05:49 Order name: IV Saline Lock; Complete Time: 06:49 sp4 09/08 05:49 Order name: Labs collected and sent; Complete Time: 06:49 sp4 Administered Medications: 06:48 Drug: Famotidine IVP 20 mg IVP once; dilute with 10 mL 0.9% NaCl; give over 2 minutes rg5 Route: IVP; Site: right antecubital; 09:32 Follow up: Response: No adverse reaction bp 06:48 Drug: NS 0.9% IV 1000 ml IV at 1 bolus Per protocol; to be given as a bolus over 60 rg5 minutes Route: IV; Rate: 1 bolus; Site: right antecubital; 09:32 Follow up: IV Status: Completed infusion bp 06:49 Drug: TORadol - Ketorolac IVP 15 mg IVP once Route: IVP; Site: right antecubital; rg5 09:32 Follow up: Response: No adverse reaction bp 06:49 Drug: Ondansetron IVP 4 mg IVP once; over 2 minutes Route: IVP; Site: right antecubital;rg5 09:32 Follow up: Response: No adverse reaction bp 06:49 Drug: morphine IVP or IV 4 mg IVP once over 4 mins Route: IVP; Infused Over: 4 mins; rg5 Site: right antecubital; 09:32 Follow up: Response: No adverse reaction bp 06:49 Drug: metoCLOPramide IVP 10 mg IVP once; over 1 to 2 minutes Route: IVP; Site: right rg5 antecubital; 09:32 Follow up: Response: No adverse reaction bp Disposition Summary: 09/08/24 09:21 Discharge Ordered Notes: Location: Home rt Problem: new rt Symptoms: have improved rt Condition: Stable rt Diagnosis - Epiploic appendagitis rt Followup: rt - With: Private Physician - When: 2 - 3 days - Reason: Discharge Instructions: - Discharge Summary Sheet rt - Epiploic Appendagitis rt Forms: - Medication Reconciliation Form rt - Antibiotic Education rt - Prescription Opioid Use rt - Patient Portal Instructions rt - Leadership Thank You Letter rt Signatures: Dispatcher [employer] Naresh Burch FNP-C [employer]-Cla1 Luis Ca MD MD rt Alex Fletcher MD MD sp4 Carina Campos cp4 Dominic Ni, VINNY RN rg5 Shivam Lozano RN bp
--- NOTE | 2024-09-08 09:21 | ER ---
Nurse's Notes [facility] Name: Bhavna Ambrose Age: 49 yrs Sex: Female : 1975 Arrival Date: 09/08/2024 Time: 04:44 Bed 15 Private MD: Paxton Zhu V Diagnosis: Epiploic appendagitis Presentation: 09/08 05:17 Chief complaint: Patient states: abdominal pain that started on Saturday. Reports cp4 nausea and vomiting as well. Coronavirus screen: Client denies travel out of the [place] in the last 14 days. At this time, the client does not indicate any symptoms associated with coronavirus-19. Ebola Screen: Patient negative for fever greater than or equal to 101.5 degrees Fahrenheit, and additional compatible Ebola Virus Disease symptoms Patient denies exposure to infectious person. Patient denies travel to an Ebola-affected area in the 21 days before illness onset. No symptoms or risks identified at this time. Initial Sepsis Screen: Does the patient meet any 2 criteria? No. Patient's initial sepsis screen is negative. Does the patient have a suspected source of infection? No. Patient's initial sepsis screen is negative. Risk Assessment: Do you want to hurt yourself or someone else? Patient reports no desire to harm self or others. Onset of symptoms was September 05, 2024. 05:17 Method Of Arrival: Ambulatory cp4 05:17 Acuity: FLETCHER 3 cp4 Triage Assessment: 05:20 General: Appears in no apparent distress. uncomfortable, Behavior is calm, cooperative, cp4 appropriate for age. 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 - Infectious Disease History:: Denies. - Social history:: Smoking status: Patient denies any tobacco usage or history of. Screenin:30 [facility] ED Fall Risk Assessment (Adult) History of falling in the last 3 months, rg5 including since admission No falls in past 3 months (0 pts) Confusion or Disorientation No (0 pts) Intoxicated or Sedated No (0 pts) Impaired Gait No (0 pts) Mobility Assist Device Used No (0 pt) Altered Elimination No (0 pt) Score/Fall Risk Level 0 - 2 = Low Risk Oriented to surroundings, Maintained a safe environment, Hourly rounding (assess needs \T\ fall precautionary measures) done. 06:30 Abuse screen: Denies threats or abuse. Nutritional screening: No deficits noted. rg5 Tuberculosis screening: No symptoms or risk factors identified. Assessment: 06:30 General: Appears in no apparent distress. Behavior is calm, cooperative, appropriate rg5 for age. Pain: Complains of pain in abdomen Pain currently is 8 out of 10 on a pain scale. Quality of pain is described as aching. Neuro: Level of Consciousness is awake, alert, Oriented to person, place, time. Cardiovascular: Denies chest pain, Capillary refill < 3 seconds Patient's skin is warm and dry. Respiratory: Airway is patent Trachea midline Respiratory effort is even, unlabored, Respiratory pattern is regular, symmetrical. GI: Abdomen is round non-distended, Pt is actively vomiting Bowel sounds present X 4 quads. Reports lower abdominal pain, upper abdominal pain, nausea. : No signs and/or symptoms were reported regarding the genitourinary system. EENT: No deficits noted. Derm: No signs and/or symptoms reported regarding the dermatologic system. Musculoskeletal: Circulation, motion, and sensation intact. Range of motion:. 09:29 Reassessment: PT D/C HOME AMBULATORY. bp Vital Signs: 05:17 BP 132 / 100; Pulse 80; Resp 18; Temp 98.3; Pulse Ox 99% ; cp4 06:30 BP 112 / 75; Pulse 80; Resp 18; Temp 98; Pulse Ox 97% on R/A; Pain 8/10; rg5 09:29 BP 98 / 64; Pulse 64; Resp 16; Temp 98; Pulse Ox 99% ; bp 06:30 Pain Scale: Adult rg5 ED Course: 04:49 Patient arrived in ED. gm2 04:49 Paxton Zhu MD is Private Physician. gm2 05:20 Triage completed. cp4 05:20 Arm band placed on right wrist. Patient placed in waiting room. cp4 05:48 Alex Fletcher MD is Attending Physician. sp4 06:15 Dominic Ni, RN is Primary Nurse. rg5 06:30 Patient has correct armband on for positive identification. Bed in low position. Call rg5 light in reach. Side rails up X 1. 06:30 No provider procedures requiring assistance completed. Inserted saline lock: 20 gauge rg5 in right antecubital area, using aseptic technique. Blood collected. Flushed with 10 mL NS. 07:08 Attending Physician role handed off by Alex Fletcher MD rt 07:08 Luis Ca MD is Attending Physician. rt 07:11 Primary Nurse role handed off by Dominic Ni, RN bp 07:11 Shivam Lozano, VINNY is Primary Nurse. bp 09:30 IV discontinued, intact, bleeding controlled, No redness/swelling at site. Pressure bp dressing applied. 09:31 Provided Education on: N/A. bp Administered Medications: 06:48 Drug: Famotidine IVP 20 mg IVP once; dilute with 10 mL 0.9% NaCl; give over 2 minutes rg5 Route: IVP; Site: right antecubital; 09:32 Follow up: Response: No adverse reaction bp 06:48 Drug: NS 0.9% IV 1000 ml IV at 1 bolus Per protocol; to be given as a bolus over 60 rg5 minutes Route: IV; Rate: 1 bolus; Site: right antecubital; 09:32 Follow up: IV Status: Completed infusion bp 06:49 Drug: TORadol - Ketorolac IVP 15 mg IVP once Route: IVP; Site: right antecubital; rg5 09:32 Follow up: Response: No adverse reaction bp 06:49 Drug: Ondansetron IVP 4 mg IVP once; over 2 minutes Route: IVP; Site: right antecubital;rg5 09:32 Follow up: Response: No adverse reaction bp 06:49 Drug: morphine IVP or IV 4 mg IVP once over 4 mins Route: IVP; Infused Over: 4 mins; rg5 Site: right antecubital; 09:32 Follow up: Response: No adverse reaction bp 06:49 Drug: metoCLOPramide IVP 10 mg IVP once; over 1 to 2 minutes Route: IVP; Site: right rg5 antecubital; 09:32 Follow up: Response: No adverse reaction bp Medication: 09:31 VIS not applicable for this client. bp Outcome: :21 Discharge ordered by . rt :30 Discharged to home ambulatory, with family, bp :30 Condition: stable :30 Discharge instructions given to patient, Instructed on discharge instructions, follow up and referral plans. Demonstrated understanding of instructions, follow-up care, :33 Patient left the ED. bp Signatures: Shivam Lozano, RN RN bp Luis Ca MD MD rt Alex Fletcher MD MD 4 Carina Campos 4 Xochitl Escudero 2 Dominic Ni RN RN rg5
[2024-09-08 10:08] VITALS: TEMP 98
[2024-09-08 10:10] VITALS: BP 98/64; O2SAT 99
== END 2024-09-08 09:33 | disposition home or self-care (01) ==
LOC: ER 04:44
DX: K63.89 Other specified diseases of intestine (principal)
CPT/HCPCS: 96361; 85025; 36415; 81003; 83690; 80053; 86140; 74177; 96375; 96374; 99284; Q9967; J2765; J2405; J7030